=== PATIENT | female | born 1940 | race Caucasian/White ===

== ENCOUNTER → 2025-03-18 13:47 | Outpatient (REF) | payer MEDICARE, BC, SELFPAY | LOC: WDC 13:47 | PROVIDERS: ATTENDING PHYSICIAN Obstetrics & Gynecology; FAMILY PHYSICIAN Internal Medicine Geriatric Medicine | DX: Z12.31 Encounter for screening mammogram for malignant neoplasm of breast (principal) | CPT/HCPCS: 77063; 77067 ==